=== PATIENT | female | born 1960 | race Caucasian/White ===

== ENCOUNTER 2024-02-25 08:45 | Inpatient (IN) | payer MEDICARE, MEDICAID ==
[2024-02-18 16:08] VITALS: PULSE 53; RESP 18; O2SAT 96
[2024-02-18] MEDS: albuterol 2.5 MG/3 ML nebule NEB ONE (16:19)
[2024-02-18 16:21] VITALS: PULSE 60; RESP 18
[2024-02-18 16:52] LABS: BILIRUBIN,URINE NEGATIVE (Neg); CLARITY,URINE CLEAR (Clear); COLOR,URINE YELLOW (Yellow); GLUCOSE, URINE NEGATIVE (Neg); KETONES,URINE NEGATIVE (Neg); LEUKOCYTE ESTERASE ,URINE NEGATIVE (Neg); NITRITES, URINE NEGATIVE (Neg); OCCULT BLOOD,URINE NEGATIVE (Neg); PH,URINE 7.5 (4.8-8.0); PROTEIN,URINE NEGATIVE (Neg); UROBILINOGEN,URINE 0.2 E.U/dL (0.2-1.0)
[2024-02-18 16:56] LABS: UA COLLECTION TYPE NON-SPECIFIED
[2024-02-18 17:05] LABS: ALBUMIN/GLOBULIN RATIO 1.1 (1.1-1.5); ALKALINE PHOSPHATASE 104 IU/L (46-116); BLOOD UREA NITROGEN 11 MG/DL (7-18); BUN/CREATININE RATIO 16.4 (10.0-20.0); CALCIUM 9.6 MG/DL (8.5-10.1); CHLORIDE 101 MMOL/L (99-107); CREATININE 0.67 MG/DL (0.40-0.90); PRE OP ALT 33 U/L (30-65); PRE OP ANION GAP 4 (8-16); PRE OP AST 21 U/L (10-37); PRE OP BILIRUB, TOTAL 0.5 MG/DL (0.0-1.0); PRE OP GLUCOSE 95 MG/DL (70-104); PRE OP POTASSIUM 4.2 MMOL/L (3.4-5.1); PRE OP SODIUM 138 MMOL/L (135-145); TOTAL CARBON DIOXIDE 32.6 MMOL/L (24-32); TOTAL PROTEIN 7.5 G/DL (6.4-8.2); eCRCL 61 ML/MIN; eGFR 89 ML/MIN
[2024-02-18 17:15] LABS: BASOPHILS % (AUTO) 0.6 % (0-1); EOSINOPHILS # (AUTO) 0.1 X10'3 (0-0.9); EOSINOPHILS % (AUTO) 1.6 % (0-6); LYMPHOCYTES # (AUTO) 2.4 X10'3 (1.1-4.8); LYMPHOCYTES % (AUTO) 39.5 % (21-51); MEAN CORPUSCULAR HEMOGLOBIN 28.7 PG (27.0-31.0); MEAN CORPUSCULAR HGB CONC 32.7 g/dL (33.0-36.5); MEAN CORPUSCULAR VOLUME 87.7 FL (78-98); MEAN PLATELET VOLUME 8.7 FL (7.4-10.4); MONOCYTES # (AUTO) 0.5 X10'3 (0-0.9); MONOCYTES % (AUTO) 8.2 % (2-12); NEUTROPHILS % (AUTO) 50.1 % (42-75); PRE OP HEMATOCRIT 39.1 % (35.0-45.0); PRE OP HEMOGLOBIN 12.8 g/dL (12.0-16.0); PRE OP PLATELET COUNT 223 X10'3 (140-440); RED BLOOD COUNT 4.45 X10'6 (4.20-5.60); RED CELL DISTRIBUTION WIDTH 13.5 % (11.5-14.5)
[2024-02-18 17:26] LABS: PRE OP INR 1.1 INR; PRE OP PROTIME 11.9 SECONDS (9.0-12.0)
[2024-02-21 11:19] LABS: ABG BASE EXCESS 0.9 mmol/L (-2.0-3.0); ABG HCO3 25.7 mmol/L (21.0-28.0); ABG OXYGEN SATURATION 95.2 % (94.0-98.0); ABG PCO2 (T) 41.5 mmHg (32.0-45.0); ABG PH (T) 7.409 (7.350-7.450); ABG PO2 (T) 76.6 mmHg (83.0-108.0); ALLEN'S TEST POSITIVE; FCOHb 0.4 % (0.5-1.5); FHHb 4.8 % (0.0-5.0); FMetHb 0.3 % (0.0-1.5); FO2Hb 94.5 % (94.0-98.0); MODE ROOM AIR; TOTAL HEMOGLOBIN 13.1 G/dl (12.0-16.0)
[2024-02-25] VITALS (26 sets, daily range): BP systolic 90–162; BP diastolic 38–67; PULSE 58–155; RESP 13–22; TEMP 98.4; O2SAT 90–100
[~2024-02-25] VITALS: Ht 157.5 cm; Wt 50.3 kg
[~2024-02-25 08:45] MED LIST: ALBU8HFA INH; BUSP15TA3 PO; DULO-31 PO; FLUT1BLS4 INH; LIDOcaine 1% (10mg/ml) 2ml vial ONE; TRAZ-256 PO
[2024-02-25] MEDS ORDERED: BUPIVAcaine 2.5mg/ml inj 50ml vial (contains preservative) ONE (11:32)
[2024-02-25] MEDS ORDERED: INDOCYANINE GREEN 25 MG/10 ML VIAL IV ONE (11:32)
[2024-02-25] MEDS ORDERED: BUPIVACAINE liposomal/PF 13.3 MG/ML vial IM ONE (11:32)
[2024-02-25] MEDS ORDERED: NORepinephrine 8mg/ 250ml NS 250 ML IV ONE (12:28)
[2024-02-25] MEDS ORDERED: morphine 4 MG/ML inj SYRINge IV PRN ×3 (12:55→18:35)
[2024-02-25] MEDS ORDERED: proCHLORperazine 10 MG/2 ml inj IV PRN ×2 (12:55→18:35)
[2024-02-25] MEDS ORDERED: meperidine/PF 25mg/ml syringe IV PRN ×2 (12:55→18:35)
[2024-02-25] MEDS: ringers solution, lacted 1,000 ML IV SCH ×2 (12:55→19:05)
[2024-02-25] MEDS ORDERED: morphine 2 MG/ML inj. syringe IV PRN ×2 (12:55→18:35)
[2024-02-25] MEDS ORDERED: midazolam 1 mg/ML 2ml injection ONE (12:56)
[2024-02-25] MEDS ORDERED: fentaNYL /PF 50mcg/ml 5ml ampule ONE (12:56)
[2024-02-25] MEDS ORDERED: rocuronium 10mg/ml inj IV ONE (13:02)
[2024-02-25] MEDS ORDERED: propofol inj 20 ML IV ONE (13:02)
[2024-02-25] MEDS ORDERED: sevoflurane 250ml liquid IH ONE (13:16)
[2024-02-25] MEDS: ceFAZolin 2gm in dextrose, iso 50 ML IV ONE (13:17)
[2024-02-25] MEDS ORDERED: ceFAZolin 1000mg inj ONE ×3 (13:25→17:06)
[2024-02-25] MEDS ORDERED: dexamethasone sod phosphate 4mg/ml inj. ONE (16:09)
[2024-02-25] MEDS: BUPIVAcaine 2.5mg/ml inj 50ml vial (contains preservative) SQ ONE (18:04)
[2024-02-25] MEDS ORDERED: glycopyrrolate 0.2mg/ml inj ONE (18:05)
[2024-02-25] MEDS ORDERED: neostigmine methylsulfate 1 MG/ML 10ml vial ONE (18:05)
[2024-02-25] MEDS ORDERED: ondansetron/PF 4mg/2ml inj IV PRN ×2 (18:15→18:35)
[2024-02-25] MEDS ORDERED: albuterol 2.5 MG/3 ML nebule NEB PRN (18:15)
[2024-02-25] MEDS ORDERED: metoclopramide 5 mg/ml inj IV PRN (18:15)
[2024-02-25 18:32] LABS: ABG BASE EXCESS -3.5 mmol/L (-2.0-3.0); ABG HCO3 25.4 mmol/L (21.0-28.0); ABG OXYGEN SATURATION 99.5 % (94.0-98.0); ABG PCO2 (T) 63.7 mmHg (32.0-45.0); ABG PH (T) 7.215 (7.350-7.450); ABG PO2 (T) 218.7 mmHg (83.0-108.0); FCOHb 0.3 % (0.5-1.5); FHHb 0.5 % (0.0-5.0); FLOW 6 L/min; FMetHb 0.1 % (0.0-1.5); FO2Hb 99.1 % (94.0-98.0); MODE MASK - SIMPLE; PATIENT TEMPERATURE 36.2
[2024-02-25] MEDS ORDERED: HYDROmorphone/PF 0.2 MG/ML SYRINGE IV PRN ×2 (18:35)
[2024-02-25] MEDS ORDERED: labetalol 20mg/4ml (5mg/ml) syringe IV PRN (18:35)
[2024-02-25] MEDS ORDERED: hydrALAZINE 20mg/ml inj. IV PRN (18:35)
[2024-02-25] MEDS: acetaminophen 1,000mg/100ml IV 100 ML IV ONE ×2 (19:02→19:04)
[2024-02-25] MEDS: meperidine/PF 25mg/ml syringe IV PRN ×2 (19:25→19:55)
[2024-02-25] MEDS: ketorolac trometh 15mg/ml vial 15 MG/ML ML IV SCH (19:26)
[2024-02-25 19:45] LABS: ABG BASE EXCESS 0.8 mmol/L (-2.0-3.0); ABG HCO3 28.6 mmol/L (21.0-28.0); ABG OXYGEN SATURATION 92.9 % (94.0-98.0); ABG PCO2 (T) 59.6 mmHg (32.0-45.0); ABG PH (T) 7.295 (7.350-7.450); ABG PO2 (T) 65.4 mmHg (83.0-108.0); FCOHb 0.2 % (0.5-1.5); FHHb 7.1 % (0.0-5.0); FMetHb 0.3 % (0.0-1.5); FO2Hb 92.4 % (94.0-98.0); MODE ROOM AIR; PATIENT TEMPERATURE 36.2; TOTAL HEMOGLOBIN 11.9 G/dl (12.0-16.0)
[2024-02-25] MEDS: traZODone 50mg tablet PO SCH (21:00)
[2024-02-25] MEDS: gabapentin 300mg capsule PO SCH (21:06)
[2024-02-25] MEDS: ondansetron/PF 4mg/2ml inj IV PRN (21:57)
[2024-02-26] VITALS (25 sets, daily range): BP systolic 101–146; BP diastolic 39–82; PULSE 60–78; RESP 9–22; TEMP 97.9; O2SAT 84–100
[2024-02-26] MEDS: ceFAZolin/D5W- 1GM premix 50 ML IV SCH ×2 (01:15→16:10)
[2024-02-26] MEDS: potassium Cl 20mEq in D5-NS 1,000 ML IV SCH (01:16)
[2024-02-26 02:49] LABS: BASOPHILS % (AUTO) 0.1 % (0-1); EOSINOPHILS % (AUTO) 0 % (0-6); HEMATOCRIT 33.4 % (35.0-45.0); HEMOGLOBIN 10.9 g/dl (12.0-16.0); LYMPHOCYTES # (AUTO) 0.7 X10'3 (1.1-4.8); LYMPHOCYTES % (AUTO) 5.8 % (21-51); MEAN CORPUSCULAR HEMOGLOBIN 28.8 PG (27.0-31.0); MEAN CORPUSCULAR HGB CONC 32.7 g/dL (33.0-36.5); MEAN CORPUSCULAR VOLUME 88.1 FL (78-98); MEAN PLATELET VOLUME 7.9 FL (7.4-10.4); MONOCYTES # (AUTO) 0.4 X10'3 (0-0.9); MONOCYTES % (AUTO) 3.4 % (2-12); NEUTROPHILS % (AUTO) 90.7 % (42-75); PLATELET COUNT 177 X10'3 (140-440); RED BLOOD COUNT 3.78 X10'6 (4.20-5.60); RED CELL DISTRIBUTION WIDTH 13.4 % (11.5-14.5); WHITE BLOOD COUNT 12.1 X10'3 (4.5-11.0)
[2024-02-26 03:11] LABS: ALANINE AMINOTRANSFERASE 19 U/L (12-78); ALKALINE PHOSPHATASE 73 IU/L (46-116); ANION GAP 3 (8-16); ASPARTATE AMINO TRANSFERASE 31 U/L (10-37); BILIRUBIN,TOTAL 0.3 MG/DL (0.1-1.0); BLOOD UREA NITROGEN 10 MG/DL (7-18); BUN/CREATININE RATIO 13.7 (10.0-20.0); CALCIUM 8.5 MG/DL (8.5-10.1); CHLORIDE 104 MMOL/L (99-107); CREATININE 0.73 MG/DL (0.40-0.90); GLUCOSE 169 MG/DL (70-104); MAGNESIUM 1.5 MG/DL (1.5-2.4); PHOSPHORUS 3.5 MG/DL (2.3-4.5); POTASSIUM 4.2 MMOL/L (3.5-5.1); SODIUM 139 MMOL/L (135-145); TOTAL CARBON DIOXIDE 32.1 MMOL/L (24-32); TOTAL PROTEIN 5.9 G/DL (6.4-8.2); eCRCL 58 ML/MIN; eGFR 80 ML/MIN
[2024-02-26] MEDS: HYDROmorphone inj. 0.5 MG/0.5 ML DISP.SYRIN IV PRN (04:21)
[2024-02-26] MEDS: duloxetine 30mg CAPSULE.DR PO SCH (07:50)
[2024-02-26] MEDS: HYDROcodone/acetaminophen 10/325mg tab PO PRN (07:59)
[2024-02-26] MEDS: Fluticasone/Umeclidin/Vilanter (Trelegy Ellipta 100-62.5-25) INHALER IH SCH (08:00)
[2024-02-26] MEDS ORDERED: busPIRone 15mg tablet PO PRN (08:00)
[2024-02-26] MEDS: gabapentin 300mg capsule PO SCH (08:45)
[2024-02-26] MEDS: magnesium oxide 400mg tablet PO SCH (20:51)
[2024-02-27] VITALS (11 sets, daily range): BP systolic 106–168; BP diastolic 52–70; PULSE 61–79; RESP 13–22; TEMP 97.4–98.6; O2SAT 91–100
[2024-02-27 07:48] LABS: BASOPHILS % (AUTO) 0.2 % (0-1); EOSINOPHILS # (AUTO) 0.1 X10'3 (0-0.9); EOSINOPHILS % (AUTO) 0.7 % (0-6); HEMATOCRIT 32.7 % (35.0-45.0); HEMOGLOBIN 10.8 g/dl (12.0-16.0); LYMPHOCYTES # (AUTO) 1.6 X10'3 (1.1-4.8); LYMPHOCYTES % (AUTO) 18.8 % (21-51); MEAN CORPUSCULAR HEMOGLOBIN 29.1 PG (27.0-31.0); MEAN CORPUSCULAR HGB CONC 32.9 g/dL (33.0-36.5); MEAN CORPUSCULAR VOLUME 88.4 FL (78-98); MEAN PLATELET VOLUME 8.3 FL (7.4-10.4); MONOCYTES # (AUTO) 0.6 X10'3 (0-0.9); MONOCYTES % (AUTO) 6.6 % (2-12); NEUTROPHILS # (AUTO) 6.3 X10'3 (1.8-7.7); NEUTROPHILS % (AUTO) 73.7 % (42-75); PLATELET COUNT 170 X10'3 (140-440); RED CELL DISTRIBUTION WIDTH 13.6 % (11.5-14.5); WHITE BLOOD COUNT 8.5 X10'3 (4.5-11.0)
[2024-02-27 08:09] LABS: ALANINE AMINOTRANSFERASE 21 U/L (12-78); ALBUMIN 2.6 G/DL (3.4-5.0); ALBUMIN/GLOBULIN RATIO 0.9 (1.1-1.5); ALKALINE PHOSPHATASE 70 IU/L (46-116); ANION GAP 4 (8-16); ASPARTATE AMINO TRANSFERASE 34 U/L (10-37); BILIRUBIN,TOTAL 0.4 MG/DL (0.1-1.0); BLOOD UREA NITROGEN 7 MG/DL (7-18); BUN/CREATININE RATIO 11.1 (10.0-20.0); CALCIUM 8.6 MG/DL (8.5-10.1); CHLORIDE 105 MMOL/L (99-107); CREATININE 0.63 MG/DL (0.40-0.90); GLUCOSE 81 MG/DL (70-104); MAGNESIUM 1.8 MG/DL (1.5-2.4); PHOSPHORUS 2.2 MG/DL (2.3-4.5); POTASSIUM 4.2 MMOL/L (3.5-5.1); SODIUM 141 MMOL/L (135-145); TOTAL CARBON DIOXIDE 31.9 MMOL/L (24-32); TOTAL PROTEIN 5.6 G/DL (6.4-8.2); eCRCL 71 ML/MIN; eGFR > 90 ML/MIN
[2024-02-27] MEDS: albuterol 2.5 MG/3 ML nebule NEB PRN (19:40)
[2024-02-28] VITALS (10 sets, daily range): BP systolic 123–152; BP diastolic 45–75; PULSE 66–123; RESP 16–27; TEMP 97.3–99; O2SAT 90–98
[2024-02-28] MEDS: morphine 2 MG/ML inj. syringe IV PRN (03:19)
[2024-02-28 08:16] LABS: BASOPHILS % (AUTO) 0.3 % (0-1); EOSINOPHILS % (AUTO) 0.5 % (0-6); HEMATOCRIT 32.6 % (35.0-45.0); LYMPHOCYTES # (AUTO) 1.7 X10'3 (1.1-4.8); LYMPHOCYTES % (AUTO) 19.9 % (21-51); MEAN CORPUSCULAR HEMOGLOBIN 29.7 PG (27.0-31.0); MEAN CORPUSCULAR HGB CONC 33.7 g/dL (33.0-36.5); MEAN CORPUSCULAR VOLUME 88.1 FL (78-98); MEAN PLATELET VOLUME 8.7 FL (7.4-10.4); MONOCYTES # (AUTO) 0.7 X10'3 (0-0.9); MONOCYTES % (AUTO) 7.6 % (2-12); NEUTROPHILS # (AUTO) 6.3 X10'3 (1.8-7.7); NEUTROPHILS % (AUTO) 71.7 % (42-75); PLATELET COUNT 166 X10'3 (140-440); RED CELL DISTRIBUTION WIDTH 13.3 % (11.5-14.5); WHITE BLOOD COUNT 8.8 X10'3 (4.5-11.0)
[2024-02-28 08:23] LABS: ALANINE AMINOTRANSFERASE 15 U/L (12-78); ALBUMIN 2.5 G/DL (3.4-5.0); ALBUMIN/GLOBULIN RATIO 0.8 (1.1-1.5); ALKALINE PHOSPHATASE 74 IU/L (46-116); ANION GAP 2 (8-16); ASPARTATE AMINO TRANSFERASE 24 U/L (10-37); BILIRUBIN,TOTAL 0.5 MG/DL (0.1-1.0); BLOOD UREA NITROGEN 4 MG/DL (7-18); CALCIUM 8.5 MG/DL (8.5-10.1); CHLORIDE 103 MMOL/L (99-107); CREATININE 0.57 MG/DL (0.40-0.90); GLUCOSE 104 MG/DL (70-104); PHOSPHORUS 2.4 MG/DL (2.3-4.5); POTASSIUM 4.3 MMOL/L (3.5-5.1); SODIUM 139 MMOL/L (135-145); TOTAL CARBON DIOXIDE 34.3 MMOL/L (24-32); TOTAL PROTEIN 5.8 G/DL (6.4-8.2); eCRCL 79 ML/MIN; eGFR > 90 ML/MIN
[2024-02-29] VITALS (16 sets, daily range): BP systolic 99–126; BP diastolic 57–75; PULSE 70–175; RESP 16–29; TEMP 97.2–98.4; O2SAT 90–92
[2024-02-29 07:42] LABS: BASOPHILS % (AUTO) 0.4 % (0-1); EOSINOPHILS # (AUTO) 0.1 X10'3 (0-0.9); EOSINOPHILS % (AUTO) 1.8 % (0-6); HEMATOCRIT 33.7 % (35.0-45.0); HEMOGLOBIN 11.4 g/dl (12.0-16.0); LYMPHOCYTES # (AUTO) 1.8 X10'3 (1.1-4.8); LYMPHOCYTES % (AUTO) 23.1 % (21-51); MEAN CORPUSCULAR HEMOGLOBIN 29.9 PG (27.0-31.0); MEAN CORPUSCULAR HGB CONC 33.9 g/dL (33.0-36.5); MEAN CORPUSCULAR VOLUME 88.2 FL (78-98); MEAN PLATELET VOLUME 8.5 FL (7.4-10.4); MONOCYTES # (AUTO) 0.7 X10'3 (0-0.9); MONOCYTES % (AUTO) 8.3 % (2-12); NEUTROPHILS # (AUTO) 5.3 X10'3 (1.8-7.7); NEUTROPHILS % (AUTO) 66.4 % (42-75); PLATELET COUNT 214 X10'3 (140-440); RED BLOOD COUNT 3.82 X10'6 (4.20-5.60); RED CELL DISTRIBUTION WIDTH 13.4 % (11.5-14.5)
[2024-02-29 08:47] LABS: ALANINE AMINOTRANSFERASE 18 U/L (12-78); ALBUMIN 2.5 G/DL (3.4-5.0); ALBUMIN/GLOBULIN RATIO 0.7 (1.1-1.5); ALKALINE PHOSPHATASE 81 IU/L (46-116); ANION GAP 9 (8-16); ASPARTATE AMINO TRANSFERASE 27 U/L (10-37); BILIRUBIN,TOTAL 0.5 MG/DL (0.1-1.0); BLOOD UREA NITROGEN 6 MG/DL (7-18); BUN/CREATININE RATIO 11.1 (10.0-20.0); CALCIUM 9.1 MG/DL (8.5-10.1); CHLORIDE 103 MMOL/L (99-107); CREATININE 0.54 MG/DL (0.40-0.90); GLUCOSE 99 MG/DL (70-104); MAGNESIUM 1.9 MG/DL (1.5-2.4); PHOSPHORUS 2.5 MG/DL (2.3-4.5); POTASSIUM 4.3 MMOL/L (3.5-5.1); SODIUM 141 MMOL/L (135-145); TOTAL CARBON DIOXIDE 29.2 MMOL/L (24-32); TOTAL PROTEIN 5.9 G/DL (6.4-8.2); eCRCL 83 ML/MIN; eGFR > 90 ML/MIN
[2024-02-29] MEDS ORDERED: amiodarone/D5 360MG/200ML BAG 200 ML IV SCH (21:40)
[2024-02-29] MEDS: amiodarone 150mg/dext, iso-os 100 ML IV ONE (21:54)
[2024-02-29] MEDS: amiodarone/D5 360MG/200ML BAG 200 ML IV SCH (22:07)
[2024-03-01] VITALS (12 sets, daily range): BP systolic 100–149; BP diastolic 54–73; PULSE 64–84; RESP 14–27; TEMP 97.4–98.5; O2SAT 90–98
[2024-03-01] MEDS: magnesium sulf-water 4G/100mL 100 ML IV ONE (00:32)
[2024-03-01 07:20] LABS: BASOPHILS % (AUTO) 0.5 % (0-1); EOSINOPHILS # (AUTO) 0.1 X10'3 (0-0.9); EOSINOPHILS % (AUTO) 2.2 % (0-6); HEMATOCRIT 33.2 % (35.0-45.0); HEMOGLOBIN 11.1 g/dl (12.0-16.0); LYMPHOCYTES # (AUTO) 1.4 X10'3 (1.1-4.8); LYMPHOCYTES % (AUTO) 21.7 % (21-51); MEAN CORPUSCULAR HEMOGLOBIN 29.2 PG (27.0-31.0); MEAN CORPUSCULAR HGB CONC 33.5 g/dL (33.0-36.5); MEAN CORPUSCULAR VOLUME 87.2 FL (78-98); MEAN PLATELET VOLUME 8.2 FL (7.4-10.4); MONOCYTES # (AUTO) 0.7 X10'3 (0-0.9); MONOCYTES % (AUTO) 10.9 % (2-12); NEUTROPHILS # (AUTO) 4.3 X10'3 (1.8-7.7); NEUTROPHILS % (AUTO) 64.7 % (42-75); PLATELET COUNT 223 X10'3 (140-440); RED BLOOD COUNT 3.81 X10'6 (4.20-5.60); RED CELL DISTRIBUTION WIDTH 13.2 % (11.5-14.5); WHITE BLOOD COUNT 6.6 X10'3 (4.5-11.0)
[2024-03-01 08:00] LABS: ALANINE AMINOTRANSFERASE 16 U/L (12-78); ALBUMIN 2.5 G/DL (3.4-5.0); ALBUMIN/GLOBULIN RATIO 0.8 (1.1-1.5); ALKALINE PHOSPHATASE 80 IU/L (46-116); ANION GAP 3 (8-16); ASPARTATE AMINO TRANSFERASE 16 U/L (10-37); BILIRUBIN,TOTAL 0.3 MG/DL (0.1-1.0); BLOOD UREA NITROGEN 6 MG/DL (7-18); BUN/CREATININE RATIO 9.8 (10.0-20.0); CHLORIDE 103 MMOL/L (99-107); CREATININE 0.61 MG/DL (0.40-0.90); GLUCOSE 114 MG/DL (70-104); MAGNESIUM 2.5 MG/DL (1.5-2.4); PHOSPHORUS 3.2 MG/DL (2.3-4.5); SODIUM 139 MMOL/L (135-145); TOTAL CARBON DIOXIDE 33.2 MMOL/L (24-32); TOTAL PROTEIN 5.8 G/DL (6.4-8.2); eCRCL 74 ML/MIN; eGFR > 90 ML/MIN
[2024-03-01] MEDS: lactose-reduced food (Ensure Enlive) - 237ml bottle PO SCH (18:00)
[2024-03-01] MEDS: amiodarone 200mg tablet PO SCH (21:19)
[2024-03-01] MEDS: enoxaparin 40mg/0.4ml syringe SUBCUT SCH (21:20)
[2024-03-02] VITALS (8 sets, daily range): BP systolic 130–156; BP diastolic 44–73; PULSE 65–81; RESP 15–25; TEMP 97–98.4; O2SAT 92–97
[2024-03-02] MEDS: docusate sod 100mg capsule PO SCH (07:23)
[2024-03-02] MEDS: HYDROcodone/acetaminophen 10/325mg tab PO PRN (15:00)
[2024-03-02] MEDS: DOXYCYCLINE 100MG CAPSULE PO SCH (17:25)
[2024-03-03 02:00] VITALS: BP 104/54; PULSE 73; RESP 16; TEMP 97.8; O2SAT 85
[2024-03-03 03:27] VITALS: PULSE 77; RESP 16; O2SAT 96
[2024-03-03 06:00] VITALS: BP 115/51; PULSE 77; RESP 17; TEMP 97.8; O2SAT 96
[2024-03-03 11:00] VITALS: BP 144/60; PULSE 74; RESP 19; TEMP 97.7; O2SAT 90
[2024-03-03 15:00] VITALS: BP 130/69; PULSE 86; RESP 19; TEMP 97.8; O2SAT 92
== END 2024-03-03 17:56 | disposition home or self-care (01) | DRG 164 ==
LOC: PAS IN 09:16 → CICU 2S 20:49 → PCU 3S 02-26 22:07
PROVIDERS: ADMIT Surgery; ATTEND Surgery
PROC: 0BTC4ZZ Resection of Right Upper Lung Lobe, Percutaneous Endoscopic Approach (ICD-10-PCS; 2024-02-25)
PROC: 07B74ZZ Excision of Thorax Lymphatic, Percutaneous Endoscopic Approach (ICD-10-PCS; 2024-02-25)
PROC: 0W9940Z Drainage of Right Pleural Cavity with Drainage Device, Percutaneous Endoscopic Approach (ICD-10-PCS; 2024-02-25)
PROC: 0BNN4ZZ Release Right Pleura, Percutaneous Endoscopic Approach (ICD-10-PCS; 2024-02-25)
PROC: 8E0W4CZ Robotic Assisted Procedure of Trunk Region, Percutaneous Endoscopic Approach (ICD-10-PCS; principal; 2024-02-25 13:16)
DX: C34.11 Malignant neoplasm of upper lobe, right bronchus or lung (principal); J93.9 Pneumothorax, unspecified; J94.8 Other specified pleural conditions
CPT/HCPCS: 36415; 36600; 71045; 71046; 80053; 81003; 82803; 82948; 83735; 84100; 85018; 85025; 85610; 85730; 86885; 86900; 86901; 87081; 88305; 88309; 88331; 93005; 94060; 94640; 94760; 97110; 97116; 97161; 97530; 97535; A4358; A4615; A4618; A5200; A6213; A6223; A6250; A6258; A6449; A7000; A7048; C1758; C9250; C9290; G0378; J0131; J0282; J0690; J1100; J1171; J1650; J1885; J2003; J2175; J2250; J2270; J2405; J2704; J2710; J3010; J3475; J3480; J3490; J7030; J7040; J7120

== ENCOUNTER 2024-03-05 11:49 | Emergency (ER) | payer MEDICARE, MEDICAID ==
[~2024-03-05] VITALS: Ht 157.5 cm; Wt 46.8 kg
[~2024-03-05 11:49] MED LIST changes: -LIDOcaine 1% (10mg/ml) 2ml vial ONE
[2024-03-05 12:59] LABS: BASOPHILS % (AUTO) 0.7 % (0-1); EOSINOPHILS # (AUTO) 0.1 X10'3 (0-0.9); EOSINOPHILS % (AUTO) 1.5 % (0-6); HEMATOCRIT 37.9 % (35.0-45.0); HEMOGLOBIN 12.6 g/dl (12.0-16.0); LYMPHOCYTES # (AUTO) 1.4 X10'3 (1.1-4.8); LYMPHOCYTES % (AUTO) 20.2 % (21-51); MEAN CORPUSCULAR HEMOGLOBIN 29.5 PG (27.0-31.0); MEAN CORPUSCULAR HGB CONC 33.2 g/dL (33.0-36.5); MEAN CORPUSCULAR VOLUME 88.9 FL (78-98); MEAN PLATELET VOLUME 7.5 FL (7.4-10.4); MONOCYTES # (AUTO) 0.8 X10'3 (0-0.9); MONOCYTES % (AUTO) 11.4 % (2-12); NEUTROPHILS # (AUTO) 4.6 X10'3 (1.8-7.7); NEUTROPHILS % (AUTO) 66.2 % (42-75); PLATELET COUNT 373 X10'3 (140-440); RED BLOOD COUNT 4.26 X10'6 (4.20-5.60); RED CELL DISTRIBUTION WIDTH 13.5 % (11.5-14.5)
[2024-03-05 13:20] LABS: ALBUMIN 2.9 G/DL (3.4-5.0); ANION GAP 5 (8-16); BLOOD UREA NITROGEN 10 MG/DL (7-18); BUN/CREATININE RATIO 14.1 (10.0-20.0); CALCIUM 10.1 MG/DL (8.5-10.1); CHLORIDE 100 MMOL/L (99-107); CREATININE 0.71 MG/DL (0.40-0.90); GLUCOSE 160 MG/DL (70-104); POTASSIUM 4.6 MMOL/L (3.5-5.1); PRO BRAIN NATRIURETIC PEPTIDE 313 PG/ML (0-125); SODIUM 137 MMOL/L (135-145); TOTAL CARBON DIOXIDE 32.5 MMOL/L (24-32); eCRCL 59 ML/MIN; eGFR 83 ML/MIN
[2024-03-05] MEDS: normal saline 1000ml 1,000 ML IV ONE (13:29)
[2024-03-05 15:25] VITALS: BP 156/76; PULSE 66; RESP 16; TEMP 98.4; O2SAT 92
== END 2024-03-05 15:25 | disposition home or self-care (01) ==
LOC: ER 11:49
DX: I97.89 Other postprocedural complications and disorders of the circulatory system, not elsewhere classified (principal); R06.02 Shortness of breath; J44.9 Chronic obstructive pulmonary disease, unspecified; Z79.899 Other long term (current) drug therapy; Z79.52 Long term (current) use of systemic steroids
CPT/HCPCS: 36415; 71046; 80048; 83880; 84145; 85025; 87502; 87503; 93005; 96360; 99285; A4615; J7030; 36600; 71045; 80053; 81003; 82803; 82948; 83735; 84100; 85018; 85610; 85730; 86885; 86900; 86901; 87081; 88305; 88309; 88331; 94060; 94640; 94760; 97110; 97116; 97161; 97530; 97535; A4358; A4618; A5200; A6213; A6223; A6250; A6258; A6449; A7000; A7048; C1758; C9250; C9290; G0378; J0131; J0282; J0690; J1100; J1171; J1650; J1885; J2003; J2175; J2250; J2270; J2405; J2704; J2710; J3010; J3475; J3480; J3490; J7040; J7120

== ENCOUNTER 2024-03-09 17:19 | Emergency (ER) | payer MEDICARE, MEDICAID ==
[~2024-03-09] VITALS: Ht 157.5 cm; Wt 46.8 kg
[2024-03-09 23:39] VITALS: BP 141/59; PULSE 82; RESP 16; TEMP 98; O2SAT 94
== END 2024-03-09 23:39 | disposition home or self-care (01) ==
LOC: ER 17:19
DX: Z46.82 Encounter for fitting and adjustment of non-vascular catheter (principal); Z79.52 Long term (current) use of systemic steroids; Z79.899 Other long term (current) drug therapy
CPT/HCPCS: 71045; 99283; A6402; A6449